=== PATIENT | male | born 1965 | race Caucasian/White ===

== ENCOUNTER 2017-03-02 16:45 | Inpatient (IN) | payer MEDICAID, OTHER ==
[~2017-03-02] VITALS: Ht 160 cm; Wt 65.0 kg
[2017-03-02] MEDS: SOD CHLORIDE 0.9% 1,000 ML IV SCH (00:50)
[2017-03-02 16:48] VITALS: Ht 160 cm; Wt 65.0 kg
[2017-03-02] MEDS ORDERED: morphine 4 MG/ML VIAL IV STA (17:36)
[2017-03-02] MEDS ORDERED: FAMOTIDINE 20 MG INJ IV STA (17:36)
[2017-03-02] MEDS ORDERED: SOD CHLORIDE 0.9% 1,000 ML IV STA (17:36)
[2017-03-02] MEDS ORDERED: ONDANSETRON 4 MG INJ IV STA (17:36)
[2017-03-02 17:59] LABS: ADD SCAN DIFF NO
[2017-03-02 18:02] LABS: BASOPHIL # 0.1 10^3/ul (0.0-0.1); BASOPHILS % 0.5 % (0.0-2.0); EOSINOPHILS # 0.2 10^3/ul (0.0-0.5); EOSINOPHILS % 2.2 % (0.0-7.0); HEMATOCRIT 37.1 % (42.0-52.0); HEMOGLOBIN 12.2 g/dl (14.0-18.0); LYMPHOCYTES % 20.7 % (15.0-51.0); MEAN CORPUSCULAR HEMOGLOBIN 29.8 pg (29.0-33.0); MEAN CORPUSCULAR HGB CONC 32.9 g/dl (32.0-37.0); MEAN CORPUSCULAR VOLUME 90.7 fl (82.0-101.0); MEAN PLATELET VOLUME 8.3 fl (7.4-10.4); MONOCYTE # 1.1 10^3/ul (0.3-0.9); MONOCYTES % 11.3 % (0.0-11.0); NEUTROPHIL # 6.2 10^3/ul (1.6-7.5); NEUTROPHILS % 64.5 % (39.0-77.0); PLATELET COUNT 253 10^3/UL (140-415); RED BLOOD COUNT 4.09 10^6/ul (4.70-6.10); RED CELL DISTRIBUTION WIDTH 15.9 % (11.5-14.5); WHITE BLOOD COUNT 9.7 10^3/ul (4.8-10.8)
[2017-03-02 18:06] LABS: ADD UMIC NO; UR ASCORBIC ACID NEGATIVE (NEGATIVE); UR BILIRUBIN (Dip) NEGATIVE (NEGATIVE); UR BLOOD (Dip) NEGATIVE (NEGATIVE); UR CLARITY CLEAR (CLEAR); UR COLOR YELLOW (YELLOW); UR GLUCOSE (Dip) NEGATIVE (NEGATIVE); UR KETONES (Dip) NEGATIVE (NEGATIVE); UR LEUKOCYTE ESTERASE (Dip) NEGATIVE Leu/ul (NEGATIVE); UR NITRITE (Dip) NEGATIVE (NEGATIVE); UR SPECIFIC GRAVITY (Dip) 1.008 (1.003-1.030); UR TOTAL PROTEIN (Dip) NEGATIVE (NEGATIVE); UR UROBILINOGEN (Dip) NEGATIVE (NEGATIVE)
[2017-03-02 18:19] LABS: ALBUMIN 4.2 g/dl (3.3-4.9); ALBUMIN/GLOBULIN RATIO 1.27; BILIRUBIN,INDIRECT 0.1 mg/dl (0-1.1); BILIRUBIN,TOTAL 0.1 mg/dl (0.2-1.3); CALCIUM 9.2 mg/dl (8.4-10.2); CREATININE 0.66 mg/dl (0.61-1.24); POTASSIUM 4.5 mmol/L (3.5-5.1); TOTAL PROTEIN 7.5 g/dl (6.1-8.1)
--- NOTE | 2017-03-02 19:06 | RADRPT ---
PROCEDURE: CT of the abdomen and pelvis without contrast CLINICAL INDICATION: Right lower quadrant pain. Right flank [place] drain within draining abscess . TECHNIQUE: Spiral CT images through the abdomen and pelvis without the use of contrast. The admin istered radiation dose is CTDI 7.37 and DLP 395.9. One or more of the following dose reduction tech niques were used: automated exposure control, adjustment of the mA and/or kV according to patient si ze, or use of iterative reconstruction technique. COMPARISON: None FINDINGS: Lack of oral and intravenous contrast somewhat limits evaluation. Slight dependent atelectasis of the lung bases is seen. No pleural effusion is seen. Slight aortic calcification. The liver, spleen, adrenals, kidneys, and pancreas are unremarkable in appearance. . There is a pe rcutaneous Cristiano drain in the right posterior flank which extends through the right paraspinal mus culature and into the right psoas muscle which appears enlarged. There is stranding about the right psoas muscle. There is a tubular structure extending superiorly from the posterior aspect of the c ecum which measures at least 1.1 cm in diameter. This may represent an inflamed appendix and inflam matory change surrounds the structure with slight stranding also seen in Morison's pouch. Mildly di lated pelvic small bowel loops. Enlarged prostate with slight calcification. Unremarkable urinary b ladder. Small fat-containing left inguinal hernia. There is no definite evidence for diverticuliti s. No adenopathy is seen. No focal drainable fluid collection. There is mild degenerative change of the spine. IMPRESSION: As drain which extends into the right psoas muscle. Stranding about the right psoas muscle with fat stranding also seen about what may represent an enlarged inflamed retrocecal appendix with strandin g extending into Morison's pouch. No definite undrained fluid collection. Study with oral contrast may be helpful to better define the bowel and appendix in particular. RPTAT: HLBE Physician Adrián Date Time Electronically viewed and signed by Stephany Marcial Physician on 03/02/2017 19:05 GUILLERMINA/
[2017-03-02] MEDS ORDERED: IOHEXOL 300MG/ML 150 ML BTL ONE (19:57)
[2017-03-02] MEDS ORDERED: SOD CHLORIDE 0.9% 100 ML ONE (19:57)
--- NOTE | 2017-03-02 20:55 | RADRPT ---
PROCEDURE: CT Abdomen and Pelvis with contrast. CLINICAL INDICATION: Rule out appendicitis TECHNIQUE: CT scan of the abdomen and pelvis with contrast was performed on a multi-detector high- resolution CT scanner. The patient was scanned following the intravenous administration of 90 cc of Omnipaque 300. Coronal and sagittal reformatted images were obtained from the axial source images. Images were reviewed on a high-resolution PACS workstation. The total exam CTDI equals 9.66 mGy and the total exam DLP equals 460.55 mGy-cm. One or more the following dose reduction techniques were utilized: Automated exposure control, adjus tment of the mA and / or kV according to patient's size, or use of iterative reconstruction techniqu e. COMPARISON: CT abdomen pelvis without contrast of 03/02/2017 FINDINGS: Slight dependent atelectasis of the lung bases is seen. No pleural effusion is seen. Calcification i n abdominal aorta and iliac arteries. No abdominal aortic aneurysm is seen. The liver, spleen, adren als, right kidney and pancreas are unremarkable in appearance. There is minimal left hydronephrosis and approximate 5 mm low density structure too small to characterize arising exophytically from the posterior mid left kidney. No imaging follow-up of this is recommended.. There is a percutaneous dr chandler catheter in the right posterior flank which extends through the right paraspinal musculature and into the right psoas muscle which appears enlarged. There is stranding about the right psoas mus dheeraj. There is a tubular structure extending superiorly from the posterior aspect of the cecum which measures at least 1.1 cm in diameter. This is suggestive of an acutely inflamed retrocecal appendix and inflammatory change surrounds the structure with slight stranding also seen in Morison's pouch. Minimally dilated small bowel loop again seen in the left pelvis. There is nonspecific. Enlarged pr ostate with slight calcification with impression on the bladder. Small fat-containing left inguinal hernia. Diverticula in sigmoid, descending colon. There is no definite evidence for acute divertic ulitis. Prominent less than 1 cm short axis lymph nodes in the mesentery in the right lower quadrant . There is mild degenerative change of the spine. There is very small umbilical hernia containing fa t only. Gallbladder is contracted which could be secondary to nonfasting state. No biliary dilatati on is seen. The stomach is not distended. IMPRESSION: Percutaneous drainage catheter which extends into the right psoas muscle. Stranding about the right psoas muscle. Findings suggestive of an acutely inflamed retrocecal appendix with considerable surr ounding inflammatory change and mild extension of inflammatory change and a small amount of fluid in the Morison's pouch region. Please see above. Discussed with Dr. Muhammad at 08:49 p.m. on 03/02/20 17. RPTAT: HJES .Wayne Benitez MD, MD Date Time Electronically viewed and signed by .Wayne Benitez MD, on 03/02/2017 20:55 .S/
--- NOTE | 2017-03-02 21:11 | ERA ---
ER Documentation Chief Complaint Date/Time DATE: 03/02/17 TIME: 21:08 Chief Complaint HPI This 51-year-old male presents to the emergency room for evaluation of abdominal pain that he localizes in the right lower quadrant for the past 2 weeks. The patient states that he was at [place] and had "a surgery with a tube placed in him". The patient does not know what surgery he had her . The patient came to the ER today for evaluation and localizes pain to the right lower quadrant with no radiation. He describes pain as an achy pain. The patient denies any fevers associated with this. ROS All systems reviewed and are negative except as per history of present illness. Medications Home Meds No Active Prescriptions or Reported Meds Allergies Allergies: Coded Allergies: No Known Allergy (Unverified , 03/02/17) PMhx/Soc Medical and Surgical Hx: pt denies Medical Hx, pt denies Surgical Hx Hx Alcohol Use: No Hx Substance Use: No Hx Tobacco Use: No Smoking Status: Never smoker Physical Exam Vitals Vital Signs Date Time Temp Pulse Resp B/P Pulse Ox O2 Delivery O2 Flow Rate FiO2 03/02/17 18:30 78 20 114/85 100 Room Air 03/02/17 16:48 99.2 97 20 118/77 97 Physical Exam INITIAL VITAL SIGNS: Reviewed by me GENERAL: The patient is well developed and appropriate for usual state of health in no apparent distress HEENT: Pupils equal, round, and reactive to light. EOMI. There is no scleral icterus. NECK: C-spine is soft and supple, there is no meningismus. There is no cervical lymphadenopathy. LUNGS: Clear to auscultation bilaterally. There are no rales, wheezes or rhonchi. HEART: Regular rate and rhythm, no murmurs, clicks, rubs or gallops. ABDOMEN: Positive McBurney point tenderness, bowel sounds 4, [place] drain from right flank EXTREMITIES: There is no peripheral cyanosis or edema. No focal swelling or erythema. NEUROLOGICAL: The patient moves all four extremities with 5/5 strength. Cranial nerves II - XII are intact. Normal gait. Alert and oriented SKIN: There is no apparent rash or petechiae. HEME/LYMPHATIC: There is no evidence of excessive bruising or lymphedema. PSYCHIATRIC: The patient does not appear anxious or depressed. Result Diagram: 03/02/17 1745 7/6/17 1745 Results 24 hrs Laboratory Tests Test 03/02/17 17:45 White Blood Count 9.710^3/ul Red Blood Count 4.0910^6/ul Hemoglobin 12.2g/dl Hematocrit 37.1% Mean Corpuscular Volume 90.7fl Mean Corpuscular Hemoglobin 29.8pg Mean Corpuscular Hemoglobin Concent 32.9g/dl Red Cell Distribution Width 15.9% Platelet Count 79418^3/UL Mean Platelet Volume 8.3fl Neutrophils % 64.5% Lymphocytes % 20.7% Monocytes % 11.3% Eosinophils % 2.2% Basophils % 0.5% Nucleated Red Blood Cells % 0.0/100WBC Neutrophils # 6.210^3/ul Lymphocytes # 2.010^3/ul Monocytes # 1.110^3/ul Eosinophils # 0.210^3/ul Basophils # 0.110^3/ul Nucleated Red Blood Cells # 0.010^3/ul Urine Color YELLOW Urine Clarity CLEAR Urine pH 5.0 Urine Specific [place] 1.008 Urine Ketones NEGATIVEmg/dL Urine Nitrite NEGATIVEmg/dL Urine Bilirubin NEGATIVEmg/dL Urine Urobilinogen NEGATIVEmg/dL Urine Leukocyte Esterase NEGATIVELeu/ul Urine Hemoglobin NEGATIVEmg/dL Urine Glucose NEGATIVEmg/dL Urine Total Protein NEGATIVEmg/dl Sodium Level 138mmol/L Potassium Level 4.5mmol/L Chloride Level 101mmol/L Carbon Dioxide Level 28mmol/L Anion Gap 14 Blood Urea Nitrogen 7mg/dl Creatinine 0.66mg/dl Glucose Level 100mg/dl Calcium Level 9.2mg/dl Total Bilirubin 0.1mg/dl Direct Bilirubin 0.00mg/dl Indirect Bilirubin 0.1mg/dl Aspartate Amino Transf (AST/SGOT) 21IU/L Alanine Aminotransferase (ALT/SGPT) 25IU/L Alkaline Phosphatase 98IU/L Total Protein 7.5g/dl Albumin 4.2g/dl Globulin 3.30g/dl Albumin/Globulin Ratio 1.27 Lipase 75U/L Current Medications Medications (Trade) Dose Ordered Sig/Juan Miguel Route PRN Reason Start Time Stop Time Status Last Admin Dose Admin Sodium Chloride (NS) 1,000 ml @ 1,000 mls/hr Q1H STAT IV 03/02/17 17:36 03/02/17 18:35 DC 03/02/17 19:08 Morphine Sulfate (morphine) 4 mg ONCE STAT IV 03/02/17 17:36 03/02/17 17:38 DC 03/02/17 17:55 Ondansetron HCl (Zofran Inj) 4 mg ONCE STAT IV 03/02/17 17:36 03/02/17 17:38 DC 03/02/17 17:55 Famotidine (Pepcid Iv) 20 mg ONCE STAT IV 03/02/17 17:36 03/02/17 17:38 DC 03/02/17 17:55 IV Flush 10 ml 10 ml STK-MED ONCE .ROUTE 03/02/17 19:57 03/02/17 19:58 DC Sodium Chloride (NS) 100 ml @ ud STK-MED ONCE .ROUTE 03/02/17 19:57 03/02/17 19:58 DC Iohexol (Omnipaque 300mg/ ml) 150 ml STK-MED ONCE .ROUTE 03/02/17 19:57 03/02/17 19:58 DC Procedures/MDM CT abdomen pelvis with IV contrast: Percutaneous drainage catheter which extends into the right psoas muscle. Stranding about the right psoas muscle. Findings suggestive of an acutely inflamed retrocecal appendix with considerable surrounding inflammatory change and mild extension of inflammatory change and a small amount of fluid in the Morison's pouch region. Please see above. This 51-year-old male presents to the ER for evaluation of abdominal pain. When I evaluated this patient the patient was complaining of right lower quadrant pain he did have significant tenderness on my examination. I did obtain a CT of the abdomen pelvis with IV contrast which shows an acutely inflamed retrocecal appendix with moderate inflammatory change. I have contacted Dr. Castro who is our on-call general surgeon. He states that he actually saw this patient at the other facility and states the patient had a complicated psoas abscess. I given this patient's pain he will be placed in for admission at this time. The patient was started on Flagyl. He will be admitted to the hospitalist Dr. Richard Departure Diagnosis: Primary Impression: Retrocecal appendicitis Additional Impressions: Abdominal pain Normocytic anemia Condition: Stable DARVINCHAITANYA NICERUDDY SCHILLING Mar 02, 2017 21:11
[2017-03-02 21:26] VITALS: TEMP 96.9
[2017-03-02] MEDS ORDERED: ACETAMINOPHEN 325 MG TAB PO PRN (21:30)
[2017-03-02] MEDS ORDERED: ONDANSETRON 4 MG INJ IV PRN (21:30)
[2017-03-02] MEDS ORDERED: metroNIDAZOLE 500 MG/NS (PMX) 100 ML IVPB ONE (21:30)
[2017-03-02 22:52] VITALS: BP 112/70; PULSE 81; RESP 18
--- NOTE | 2017-03-02 23:59 | HP ---
Date/Time of Note Date/Time of Note DATE: 03/02/17 TIME: 23:48 Assessment/Plan VTE Prophylaxis VTE Prophylaxis Intervention: SCD's Lines/Catheters IV Catheter Type (from Nrsg): Saline Lock Assessment/Plan Assessment/Plan 1. R psoas muscle abscess: s/p drain placement 2. Appendicitis ?acute versus non resolving PLAN: admit / empiric broadspectrum abx / await surgery review and recommendations / culture drainage PRN pain control/ antiemetics/ antipyretics/ supportive care HPI/ROS Admit Date/Time Admit Date/Time Mar 02, 2017 at 21:06 Hx of Present Illness This is a 51-year-old male who was recently managed at [facility] when he had presented with abdominal pain in the right lower quadrant. The patient had undergone a procedure and he had placed a drainage tube in him, it seems like he had a right psoas abscess. He was discharged but his pain recurred and has been slowly worsening over the last 2 weeks. He was brought to the emergency room where a CT scan does show the draining good position but now with a surrounding appendicitis. Dr. Mcdonald who was the original surgeon who saw him at [place] has accepted to follow him here as well and patient is being admitted for further workup and management. He has had some nausea but no vomiting, no fever. He has not had any blood in his stool, no hematemesis. No chest pain, no palpitations, no syncopal episode, no dizziness , no focal deficits. ROS 12 point review if systems was done and pertinent findings are as noted. PMH/Family/Social Past Medical History See HPI Past Surgical History See HPI Family History Significant Family History: no pertinent family hx Social History Alcohol Use: none Smoking Status: Never smoker Exam/Review of Systems Vital Signs Vitals VS - Last 72 Hours, by Label Date Time Temp Pulse Resp B/P Pulse Ox O2 Delivery O2 Flow Rate FiO2 03/02/17 22:52 98.2 81 18 112/70 99 Room Air 03/02/17 21:26 96.9 85 20 117/67 100 Room Air 03/02/17 18:30 78 20 114/85 100 Room Air 03/02/17 16:48 99.2 97 20 118/77 97 Vital Signs Date Time Temp Pulse Resp B/P Pulse Ox O2 Delivery O2 Flow Rate FiO2 03/02/17 22:52 98.2 81 18 112/70 99 Room Air Exam Exam GENERAL: Patient is alert, oriented x 3, in no apparent distress; does not appear acutely or chronically ill. Patient is able to sit up unassisted.Patient makes good eye contact, is conversant, interactive, coherent. Patient appears calm and comfortable and is able to follow commands. HEENT: Oropharynx is clear. There is no carotid bruit, no masses. Patient's pupils are equal, round and reactive to light bilaterally. Extraocular motions are intact. There is no scleral icterus. There is no facial asymmetry. NECK: Supple. LUNGS: Clear to auscultation bilaterally with good air entry. No Wheezes or crackles. HEART: S1, S2. No murmur, gallops or rubs. Regular rate and rhythm. ABDOMEN: Positive McBurney point tenderness, bowel sounds 4, Cristiano drain from right flank BACK: no costovertebral angle tenderness. GENITOURINARY: Deferred. EXTREMITIES: No edema. There is no cyanosis, clubbing. There are 2+ pulses bilaterally distally. NEUROLOGIC: The patient has no lateralizing signs. Cranial nerves II-XII are intact. SKIN: Otherwise, unremarkable. Labs Result Diagram: 03/02/17 1745 03/02/17 1745 Medications Medications Current Medications Sodium Chloride (NS) 1,000 ml @ 80 mls/hr [id number] IV ; Start 03/02/17 at 21:05; Stop 03/03/17 at 09:34 Procedures Procedures Laboratory Tests Test 03/02/17 17:45 White Blood Count 9.710^3/ul Red Blood Count 4.0910^6/ul Hemoglobin 12.2g/dl Hematocrit 37.1% Mean Corpuscular Volume 90.7fl Mean Corpuscular Hemoglobin 29.8pg Mean Corpuscular Hemoglobin Concent 32.9g/dl Red Cell Distribution Width 15.9% Platelet Count 07508^3/UL Mean Platelet Volume 8.3fl Neutrophils % 64.5% Lymphocytes % 20.7% Monocytes % 11.3% Eosinophils % 2.2% Basophils % 0.5% Nucleated Red Blood Cells % 0.0/100WBC Neutrophils # 6.210^3/ul Lymphocytes # 2.010^3/ul Monocytes # 1.110^3/ul Eosinophils # 0.210^3/ul Basophils # 0.110^3/ul Nucleated Red Blood Cells # 0.010^3/ul Urine Color YELLOW Urine Clarity CLEAR Urine pH 5.0 Urine Specific [place] 1.008 Urine Ketones NEGATIVEmg/dL Urine Nitrite NEGATIVEmg/dL Urine Bilirubin NEGATIVEmg/dL Urine Urobilinogen NEGATIVEmg/dL Urine Leukocyte Esterase NEGATIVELeu/ul Urine Hemoglobin NEGATIVEmg/dL Urine Glucose NEGATIVEmg/dL Urine Total Protein NEGATIVEmg/dl Sodium Level 138mmol/L Potassium Level 4.5mmol/L Chloride Level 101mmol/L Carbon Dioxide Level 28mmol/L Anion Gap 14 Blood Urea Nitrogen 7mg/dl Creatinine 0.66mg/dl Glucose Level 100mg/dl Calcium Level 9.2mg/dl Total Bilirubin 0.1mg/dl Direct Bilirubin 0.00mg/dl Indirect Bilirubin 0.1mg/dl Aspartate Amino Transf (AST/SGOT) 21IU/L Alanine Aminotransferase (ALT/SGPT) 25IU/L Alkaline Phosphatase 98IU/L Total Protein 7.5g/dl Albumin 4.2g/dl Globulin 3.30g/dl Albumin/Globulin Ratio 1.27 Lipase 75U/L Current Medications Medications (Trade) Dose Ordered Sig/Juan Miguel Route PRN Reason Start Time Stop Time Status Last Admin Dose Admin Sodium Chloride (NS) 1,000 ml @ 1,000 mls/hr Q1H STAT IV 03/02/17 17:36 03/02/17 18:35 DC 03/02/17 19:08 1,000 MLS/HR Morphine Sulfate (morphine) 4 mg ONCE STAT IV 03/02/17 17:36 03/02/17 17:38 DC 03/02/17 17:55 4 MG Ondansetron HCl (Zofran Inj) 4 mg ONCE STAT IV 03/02/17 17:36 03/02/17 17:38 DC 03/02/17 17:55 4 MG Famotidine (Pepcid Iv) 20 mg ONCE STAT IV 03/02/17 17:36 03/02/17 17:38 DC 03/02/17 17:55 20 MG IV Flush 10 ml 10 ml STK-MED ONCE .ROUTE 03/02/17 19:57 03/02/17 19:58 DC Sodium Chloride (NS) 100 ml @ ud STK-MED ONCE .ROUTE 03/02/17 19:57 03/02/17 19:58 DC Iohexol 150 ml 150 ml STK-MED ONCE .ROUTE 03/02/17 19:57 03/02/17 19:58 DC Sodium Chloride (NS) 1,000 ml @ 80 mls/hr [id number] IV 03/02/17 21:05 03/03/17 09:34 Ondansetron HCl (Zofran Inj) 4 mg BRIDGE ORDER PRN IV NAUSEA AND/OR VOMITING 03/02/17 21:30 03/03/17 21:29 Acetaminophen 650 mg 650 mg ER BRIDGE PRN PO MILD PAIN/FEVER 03/02/17 21:30 03/03/17 21:29 Metronidazole (Flagyl 500 Mg (Pmx)) 100 ml @ 100 mls/hr ONCE ONCE IVPB 03/02/17 21:30 03/02/17 22:29 DC 03/02/17 21:38 100 MLS/HR PROCEDURE: CT Abdomen and Pelvis with contrast. CLINICAL INDICATION: Rule out appendicitis TECHNIQUE: CT scan of the abdomen and pelvis with contrast was performed on a multi-detector high-resolution CT scanner. The patient was scanned following the intravenous administration of 90 cc of Omnipaque 300. Coronal and sagittal reformatted images were obtained from the axial source images. Images were reviewed on a high-resolution PACS workstation. The total exam CTDI equals 9.66 mGy and the total exam DLP equals 460.55 mGy-cm. One or more the following dose reduction techniques were utilized: Automated exposure control, adjustment of the mA and / or kV according to patient's size, or use of iterative reconstruction technique. COMPARISON: CT abdomen pelvis without contrast of 03/02/2017 FINDINGS: Slight dependent atelectasis of the lung bases is seen. No pleural effusion is seen. Calcification in abdominal aorta and iliac arteries. No abdominal aortic aneurysm is seen. The liver, spleen, adrenals, right kidney and pancreas are unremarkable in appearance. There is minimal left hydronephrosis and approximate 5 mm low density structure too small to characterize arising exophytically from the posterior mid left kidney. No imaging follow-up of this is recommended.. There is a percutaneous drainage catheter in the right posterior flank which extends through the right paraspinal musculature and into the right psoas muscle which appears enlarged. There is stranding about the right psoas muscle. There is a tubular structure extending superiorly from the posterior aspect of the cecum which measures at least 1.1 cm in diameter. This is suggestive of an acutely inflamed retrocecal appendix and inflammatory change surrounds the structure with slight stranding also seen in Morison's pouch. Minimally dilated small bowel loop again seen in the left pelvis. There is nonspecific. Enlarged prostate with slight calcification with impression on the bladder. Small fat-containing left inguinal hernia. Diverticula in sigmoid, descending colon. There is no definite evidence for acute diverticulitis. Prominent less than 1 cm short axis lymph nodes in the mesentery in the right lower quadrant. There is mild degenerative change of the spine. There is very small umbilical hernia containing fat only. Gallbladder is contracted which could be secondary to nonfasting state. No biliary dilatation is seen. The stomach is not distended. IMPRESSION: Percutaneous drainage catheter which extends into the right psoas muscle. Stranding about the right psoas muscle. Findings suggestive of an acutely inflamed retrocecal appendix with considerable surrounding inflammatory change and mild extension of inflammatory change and a small amount of fluid in the Morison's pouch region. Please see above. Discussed with Dr. Muhammad at 08:49 p.m. on 03/02/2017. RPTAT: HJES .Wayne Benitez MD, MD Date Time Electronically viewed and signed by .Wayne Benitez MD, on 03/02/2017 20:55 TESS ALLRED Mar 02, 2017 23:59
[2017-03-03] MEDS ORDERED: morphine 2 MG INJ IV PRN
[2017-03-03] MEDS: DEXTROSE 5%-0.45% NACL 1,000 ML IV SCH ×2 (01:31→08:00)
[2017-03-03] MEDS: PIPER-TAZO 3.375 GM IV (PMX) 100 ML IVPB SCH ×3 (01:31→13:55)
[2017-03-03 02:00] VITALS: BP 99/60; RESP 19
[2017-03-03] MEDS: SOD CHLORIDE 0.9% 1,000 ML IV SCH (02:18)
[2017-03-03 07:45] VITALS: BP 106/62; RESP 16
[2017-03-03] MEDS ORDERED: FAMOTIDINE 20 MG INJ IV SCH (09:00)
[2017-03-03 14:35] VITALS: BP 107/68; RESP 16
[2017-03-03] MEDS ORDERED: IBUPROFEN 800 MG TAB PO PRN (17:00)
[2017-03-03] MEDS ORDERED: metroNIDAZOLE 500 MG TAB PO SCH (17:00)
--- NOTE | 2017-03-03 17:00 | DS ---
Date/Time of Note Date/Time of Note DATE: 03/03/17 TIME: 16:56 Discharge Summary Admission/Discharge Info Admit Date/Time Mar 02, 2017 at 21:06 Discharge Date/Time 03/03/17 Discharge Diagnosis Ac Appy Consults Dr Castro Procedures Ct Hx of Present Illness This is a 51-year-old male who was recently managed at [facility] when he had presented with abdominal pain in the right lower quadrant. The patient had undergone a procedure and he had placed a drainage tube in him, it seems like he had a right psoas abscess. He was discharged but his pain recurred and has been slowly worsening over the last 2 weeks. He was brought to the emergency room where a CT scan does show the draining good position but now with a surrounding appendicitis. Dr. Castro who was the original surgeon who saw him at [place] has accepted to follow him here as well and patient is being admitted for further workup and management. He has had some nausea but no vomiting, no fever. He has not had any blood in his stool, no hematemesis. No chest pain, no palpitations, no syncopal episode, no dizziness , no focal deficits. Hospital Course 51-year-old male who was recently managed at [facility] w drainage tube placement for right psoas abscess. He was discharged but pain recurred, worsening over [address] here showed drain in good position but now surrounding appendicitis. Dr. Castro who was the original surgeon noted that he is stable and fit for discharge. Will arrange outpatient Appy. Drain has been removed. Weight loss- improved post Abscess therapy. Appt Dr Castro 1wk PCP 1wk Home Meds No Active Prescriptions or Reported Meds Follow-up Plan Dr Castro 1wk Primary Care Provider Care Physician No Primary Pending Labs Laboratory Tests Test 03/02/17 17:45 White Blood Count 9.710^3/ul (4.8-10.8) Red Blood Count 4.0910^6/ul (4.70-6.10) Hemoglobin 12.2g/dl (14.0-18.0) Hematocrit 37.1% (42.0-52.0) Mean Corpuscular Volume 90.7fl (82.0-101.0) Mean Corpuscular Hemoglobin 29.8pg (29.0-33.0) Mean Corpuscular Hemoglobin Concent 32.9g/dl (32.0-37.0) Red Cell Distribution Width 15.9% (11.5-14.5) Platelet Count 43011^3/UL (140-415) Mean Platelet Volume 8.3fl (7.4-10.4) Neutrophils % 64.5% (39.0-77.0) Lymphocytes % 20.7% (15.0-51.0) Monocytes % 11.3% (0.0-11.0) Eosinophils % 2.2% (0.0-7.0) Basophils % 0.5% (0.0-2.0) Nucleated Red Blood Cells % 0.0/100WBC (0.0-0.0) Neutrophils # 6.210^3/ul (1.6-7.5) Lymphocytes # 2.010^3/ul (0.8-2.9) Monocytes # 1.110^3/ul (0.3-0.9) Eosinophils # 0.210^3/ul (0.0-0.5) Basophils # 0.110^3/ul (0.0-0.1) Nucleated Red Blood Cells # 0.010^3/ul (0.0-0.0) Urine Color YELLOW (YELLOW) Urine Clarity CLEAR (CLEAR) Urine pH 5.0 (5.0-9.0) Urine Specific [place] 1.008 (1.003-1.030) Urine Ketones NEGATIVEmg/dL (NEGATIVE) Urine Nitrite NEGATIVEmg/dL (NEGATIVE) Urine Bilirubin NEGATIVEmg/dL (NEGATIVE) Urine Urobilinogen NEGATIVEmg/dL (NEGATIVE) Urine Leukocyte Esterase NEGATIVELeu/ul (NEGATIVE) Urine Hemoglobin NEGATIVEmg/dL (NEGATIVE) Urine Glucose NEGATIVEmg/dL (NEGATIVE) Urine Total Protein NEGATIVEmg/dl (NEGATIVE) Sodium Level 138mmol/L (135-144) Potassium Level 4.5mmol/L (3.5-5.1) Chloride Level 101mmol/L (97-110) Carbon Dioxide Level 28mmol/L (21-31) Anion Gap 14 (8-16) Blood Urea Nitrogen 7mg/dl (7-20) Creatinine 0.66mg/dl (0.61-1.24) Glucose Level 100mg/dl (70-220) Calcium Level 9.2mg/dl (8.4-10.2) Total Bilirubin 0.1mg/dl (0.2-1.3) Direct Bilirubin 0.00mg/dl (0.00-0.20) Indirect Bilirubin 0.1mg/dl (0-1.1) Aspartate Amino Transf (AST/SGOT) 21IU/L (15-46) Alanine Aminotransferase (ALT/SGPT) 25IU/L (13-69) Alkaline Phosphatase 98IU/L (42-121) Total Protein 7.5g/dl (6.1-8.1) Albumin 4.2g/dl (3.3-4.9) Globulin 3.30g/dl (1.3-3.2) Albumin/Globulin Ratio 1.27 Lipase 75U/L (23-300) JIA TALBOT MD Mar 03, 2017 17:00
--- NOTE | 2017-03-03 17:01 | PDOCDIS ---
Discharge Instructions DIAGNOSIS Discharge Diagnosis Ac Appy CONDITION Patient Condition: Good HOME CARE INSTRUCTIONS: Diet Instructions: Regular ACTIVITY: Activity Restrictions: Slowly Increase Activity FOLLOW UP/APPOINTMENTS Follow-up Plan Dr Castro 1wk JIA TALBOT MD Mar 03, 2017 17:01
[2017-03-03] MEDS ORDERED: METR500T PO (17:02)
[2017-03-03] MEDS ORDERED: LACT1CAP57 PO (17:02)
[2017-03-03] MEDS ORDERED: IBUP800T25 PO (17:02)
[2017-03-03] MEDS ORDERED: CIPR500T4 PO (17:02)
[2017-03-03] MEDS ORDERED: CIPROFLOXACIN 500 MG TAB PO SCH (18:00)
--- NOTE | 2017-03-08 09:32 | CONS ---
DATE OF ADMISSION: 03/02/2017 DATE OF CONSULTATION: 03/03/2017 REASON FOR CONSULTATION: Acute appendicitis. The patient is a 51-year-old male who two weeks ago was admitted to [facility] with large phlegmon versus neoplasm occupying the entire right lower quadrant of the abdomen. He was treated with IV antibiotics and CT drainage. The cytology and the fluid from the CT drainage was negative for malignancy and progressively the inflammatory process and phlegmon partially abscessed and was able to be successfully drained with his pigtail catheter. He was discharged home with antibiotics with the notion of repeating the CT scan in 2 weeks with a plan for interval appendectomy approximately 4 weeks from now. He came into the emergency room yesterday because he was bloated and had some right lower quadrant abdominal pain. In the emergency room a CT scan was performed and showed a retrocecal appendicitis with a pigtail catheter and no drainable fluid collection and some stranding in the right psoas area. This represented a marked improvement from the previous CT. His pigtail catheter has essentially been draining nothing for the last several days. He has had no fevers, chills or change in bowel or bladder habits. PAST MEDICAL HISTORY: As noted above. REVIEW OF SYSTEMS: HEAD, EARS, EYES, NOSE AND THROAT: Unremarkable. PULMONARY: No history of shortness of breath, asthma or pneumonia. CARDIAC: No history of chest pain, WI or arrhythmia. ABDOMEN: As in the HPI. EXTREMITIES: Unremarkable. MEDICATION: Outlined in the chart. ALLERGIES: NONE. PHYSICAL EXAMINATION: GENERAL: The patient is an alert and oriented 51-year-old male in no acute distress. HEENT: Within normal limits. LUNGS: Clear. HEART: Regular rhythm. ABDOMEN: Soft, flat and nontender. There is a pigtail catheter entering the right flank. The bulb has 0 drainage. EXTREMITIES: Unremarkable. LABORATORY: The patient's hematocrit is 37.1 with a white count of 9,[address] findings as noted above. IMPRESSION: The patient has had an excellent response to CT drainage. PLAN: I have removed the pigtail catheter at the bedside. The patient can be discharged home with p.o. antibiotics and followup with his primary care physician. He will need referral to General Surgery for interval laparoscopic appendectomy in approximately 1 months' time from now. Dictated By: Marko Castro MD /mario/ /Document#: [id number]
== END 2017-03-03 18:08 | disposition home or self-care (01) | DRG 395 ==
LOC: E/R 16:45 → PP2 21:06
PROVIDERS: ADMIT Family Medicine; ATTEND Family Medicine
DX: K35.80 Unspecified acute appendicitis (principal); D64.9 Anemia, unspecified
CPT/HCPCS: 36415; 74176; 74177; 80053; 81003; 83690; 85025; 87081; 96374; 96375; J2270; J2405; J2543; J7030; J7042; Q9967

== ENCOUNTER 2017-05-29 10:00 | Inpatient (IN) | payer BC, MEDICAID ==
[~2017-05-29] VITALS: Ht 160 cm; Wt 78.0 kg
[2017-05-29] VITALS (24 sets, daily range): BP systolic 115–152; BP diastolic 57–90; PULSE 75–98; RESP 16–20; Ht 160 cm; Wt 78.0 kg
[~2017-05-29 10:00] MED LIST: CIPR500T4 PO; IBUP800T25 PO; LACT1CAP57 PO; METR500T PO
[2017-05-29 12:58] LABS: BASOPHILS % 0.5 % (0.0-2.0); EOSINOPHILS # 0.1 10^3/ul (0.0-0.5); EOSINOPHILS % 1.9 % (0.0-7.0); HEMATOCRIT 42.3 % (42.0-52.0); HEMOGLOBIN 14.6 g/dl (14.0-18.0); LYMPHOCYTES % 26.2 % (15.0-51.0); MEAN CORPUSCULAR HEMOGLOBIN 30.4 pg (29.0-33.0); MEAN CORPUSCULAR HGB CONC 34.5 g/dl (32.0-37.0); MEAN CORPUSCULAR VOLUME 87.9 fl (82.0-101.0); MEAN PLATELET VOLUME 9.5 fl (7.4-10.4); MONOCYTE # 0.6 10^3/ul (0.3-0.9); MONOCYTES % 8.2 % (0.0-11.0); NEUTROPHIL # 4.7 10^3/ul (1.6-7.5); NEUTROPHILS % 62.8 % (39.0-77.0); PLATELET COUNT 194 10^3/UL (140-415); RED BLOOD COUNT 4.81 10^6/ul (4.70-6.10); RED CELL DISTRIBUTION WIDTH 13.3 % (11.5-14.5); WHITE BLOOD COUNT 7.5 10^3/ul (4.8-10.8)
[2017-05-29 13:17] LABS: ALBUMIN 3.9 g/dl (3.3-4.9); ALBUMIN/GLOBULIN RATIO 1.11; BILIRUBIN,INDIRECT 0.4 mg/dl (0-1.1); BILIRUBIN,TOTAL 0.4 mg/dl (0.2-1.3); CALCIUM 9.3 mg/dl (8.4-10.2); CREATININE 0.71 mg/dl (0.61-1.24); TOTAL PROTEIN 7.4 g/dl (6.1-8.1)
[2017-05-29 13:18] LABS: POTASSIUM 4.7 mmol/L (3.5-5.1)
[2017-05-29 13:26] LABS: INR 1.02; PARTIAL THROMBOPLASTIN TIME 27.4 Sec (25.0-35.0); PROTIME 13.4 Sec (12.2-14.2)
[2017-05-29] MEDS ORDERED: SOD CHLORIDE 0.9% 1,000 ML IV SCH (13:30)
[2017-05-29] MEDS ORDERED: CEFAZOLIN 1 GM/NS 50 ML X 1 IVPB ONE (13:30)
[2017-05-29] MEDS ORDERED: ROCURONIUM 50 MG INJ ONE (14:30)
[2017-05-29] MEDS ORDERED: FENTAnyl 50 MCG/ML VIAL ONE (14:30)
[2017-05-29] MEDS ORDERED: LIDOCAINE 2% (SDV) 5 ML INJ ONE (14:30)
[2017-05-29] MEDS ORDERED: PROPOFOL 20 ML ONE (14:30)
[2017-05-29] MEDS ORDERED: morphine 10 MG INJ ONE (14:45)
[2017-05-29] MEDS ORDERED: AMPICILLIN/SULB 3 GM/NS (PMX) 100 ML IVPB ONE (15:20)
[2017-05-29] MEDS ORDERED: DEXAMETHASONE 4 MG/ML 1 ML INJ ONE (15:37)
[2017-05-29] MEDS ORDERED: SUGAMMADEX SODIUM 200 MG/2 ML VIAL IV ONE (15:38)
[2017-05-29] MEDS ORDERED: FENTAnyl 50 MCG/ML VIAL IV PRN ×3 (16:00)
[2017-05-29] MEDS ORDERED: OXYCODONE/ACETAMINOPHEN (5/325) TAB PO PRN ×2 (16:00)
[2017-05-29] MEDS ORDERED: KETOROLAC 30 MG INJ IV PRN (16:00)
[2017-05-29] MEDS ORDERED: MEPERIDINE 25 MG INJ IV PRN (16:00)
[2017-05-29] MEDS ORDERED: HYDROmorphONE (0.2 MG/ML) 10ML SYG IV PRN ×2 (16:00)
[2017-05-29] MEDS ORDERED: LABETALOL HCL 20MG INJ IV PRN (16:00)
[2017-05-29] MEDS ORDERED: hydrALAzine 20 MG INJ IV PRN (16:00)
[2017-05-29] MEDS ORDERED: EPHEDrine SULFATE 50 MG/5 ML SYG IV PRN (16:00)
[2017-05-29] MEDS ORDERED: METOCLOPRAMIDE 10 MG INJ IV PRN (16:00)
[2017-05-29] MEDS ORDERED: DIPHENHYDRAMINE 50 MG INJ IV PRN (16:00)
[2017-05-29] MEDS ORDERED: ONDANSETRON 4 MG INJ IV PRN ×2 (16:00→16:30)
[2017-05-29] MEDS: HYDROmorphONE (0.2 MG/ML) 10ML SYG IV PRN ×3 (16:05→16:32)
[2017-05-29] MEDS ORDERED: ACETAMINOPHEN 1000MG/100ML IV 100 ML IVPB PRN (16:30)
[2017-05-29] MEDS ORDERED: HYDROmorphONE 1 MG/ML SYG IV PRN (16:30)
[2017-05-29] MEDS: D5W-0.45 NACL + KCL 20 MEQ 1,000 ML IV SCH (18:15)
[2017-05-29] MEDS: KETOROLAC 30 MG INJ IV SCH (18:19)
--- NOTE | 2017-05-29 18:34 | OPR ---
DATE OF OPERATION: 05/29/2017 PREOPERATIVE DIAGNOSES: 1. History of acute appendicitis. 2. Need for interval appendectomy. POSTOPERATIVE DIAGNOSES: 1. History of acute appendicitis. 2. Need for interval appendectomy. OPERATION PERFORMED: Interval appendectomy. ANESTHESIA: General. ANESTHESIOLOGIST: Mao Lucero MD SURGEON: Jermain Trujillo MD MEDICAL CLAIMS PROCESSOR: None. INDICATIONS FOR PROCEDURE: Patient is a 52-year-old male, who approximately 2-3 months ago was seen at a local hospital for acute appendicitis. For reasons that are not clear, patient did not go undergo operative appendectomy, but was treated with antibiotics. He was then discharged from the hospital. Since that time, he has had significant and persistent right lower quadrant pain. It should also be noted that when he was treated in the hospital with antibiotics, a percutaneous drain was also placed. I had a lengthy discussion with the patient in my office as to the need for appendectomy. He consented and was scheduled for surgery. OPERATIVE PROCEDURE: Patient was brought to the operating theater, placed under general endotracheal tube anesthesia. The right lower quadrant was shaved, prepped and draped in the usual sterile fashion. Approximately 4-5 cm incision was made at McBurney's point in the standard fashion. Subcutaneous tissue was dissected with cautery down to the aponeurosis of the external oblique. The aponeurosis of the external oblique was incised in the direction of the fibers to allow visualization of the underlying fusion line of the internal oblique and rectus sheath. Fusion line was incised vertically, as was the underlying transversus abdominis muscle and peritoneum. Upon entering the abdomen, a gloved finger was used to identify the cecum. It was elevated into the wound. The appendix was found to be in a retrocecal position. There was still evidence of inflammation, but no active pus. It was meticulously mobilized and brought into the wound. The mesoappendix was sequentially transected with the LigaSure device. With the base of the appendix fully exposed, it was ligated first with 3-0 Vicryl suture, and then a 2nd ligation took place with 0 Prolene suture. The appendix was transected and sent for permanent pathologic analysis. The base of the appendix was ablated with cautery to prevent future mucocele formation. The right lower quadrant was then irrigated, and the abdomen was then closed in layered fashion with 2-0 Prolene sutures. Final closure of the aponeurosis of the external oblique took place with a running 3-0 Vicryl suture. The wound was then irrigated with Betadine, and skin was reapproximated with skin sharmin. The patient tolerated procedure well. The estimated blood loss was 20 mL. There were no complications, and the patient was transported in stable condition to the recovery room. Dictated By: Jermain Trujillo MD /mario/tayo /Document#: [id number]
[2017-05-29] MEDS: PIPER-TAZO 3.375 GM IV (PMX) 100 ML IVPB SCH (19:00)
--- NOTE | 2017-05-29 21:40 | HP ---
DATE OF ADMISSION: 05/29/2017 CHIEF COMPLAINT/HISTORY OF PRESENT ILLNESS: The patient is a 52- year-old gentleman who initially back in February presented at [facility] with right lower quadrant pain. CT revealed probable perforated appendicitis; however, he was never treated surgically. He was given antibiotic and then discharged. Subsequently, he continued to experience symptoms and eventually presented to [facility] and was treated with antibiotics. Patient was seen by Dr. Castro at that time, and recommended medical treatment and outpatient appendectomy. Patient was subsequently referred to Dr. Trujillo and brought into the hospital today for interval open appendectomy. Patient does have postoperative pain. Denies any nausea, vomiting. Denies any chest pain. No reported fever or chills. No reported focal weakness. No reported vomiting. No reported dysuria or hematuria. No reported headache, dizziness, syncope. No history of cough, shortness of breath. Rest of review of systems unremarkable. PAST MEDICAL HISTORY: As stated above. PAST SURGICAL HISTORY: As stated above. FAMILY HISTORY: Noncontributory. SOCIAL HISTORY: No smoking. No alcohol. PHYSICAL EXAMINATION: GENERAL: Patient conscious, awake, alert. VITAL SIGNS: Temperature 98.3, pulse 92, respirations 18, blood pressure 152/83, O2 sat 94 percent on room air. HEENT: Conjunctivae is normal. Oropharynx clear. NECK: Supple. No mass. No thyromegaly. CHEST: Fairly clear. CARDIAC: Normal. No murmur. ABDOMEN: Patient is status post appendectomy. EXTREMITIES: No leg edema. Pedal pulses palpable. NEUROLOGIC: Patient is awake, alert, with no gross focal deficit. RECTAL: Was deferred due to patient's postoperative state. LABORATORY: Done this morning: WBC 7.5, hemoglobin 14.6, platelets 194. Sodium 139, potassium 4.7, BUN 12, creatinine 0.7, glucose 83. Liver enzymes normal. IMPRESSION: History of perforated appendicitis, with abscess, status post catheter drainage, status post interval open appendectomy. PLAN: Patient was admitted on medical floor and will be started on IV Zosyn, IV fluid. Patient will be kept n.p.o. and will be given IV Dilaudid for pain control. Further recommendations depending on patient's clinical course. We will use SCDs for DVT prophylaxis. Dictated By: Harish Mackey MD /mario/tayo /Document#: [id number]
[2017-05-30] MEDS: KETOROLAC 30 MG INJ IV SCH ×4 (00:06→17:24)
[2017-05-30 02:00] VITALS: BP 112/68; RESP 19
[2017-05-30] MEDS: PIPER-TAZO 3.375 GM IV (PMX) 100 ML IVPB SCH ×3 (02:37→17:35)
[2017-05-30] MEDS: D5W-0.45 NACL + KCL 20 MEQ 1,000 ML IV SCH ×4 (03:20→23:49)
[2017-05-30 07:38] VITALS: BP 112/67; RESP 18
[2017-05-30 14:43] VITALS: BP 106/66; RESP 18
--- NOTE | 2017-05-30 15:35 | PN ---
Date/Time of Note Date/Time of Note DATE: 05/30/17 TIME: 15:31 Assessment/Plan VTE Prophylaxis VTE Prophylaxis Intervention: SCD's Lines/Catheters IV C[facility]ter Type (from [facility]): Peripheral IV Urinary Cath still in place: No Assessment/Plan Assessment/Plan 48-year-old male with: 1. Previous appendicitis, status post appendectomy, POD#[address] Trujillo Patient passing gas, follow-up from surgery pending hopefully can be started on clear liquids. On IV antibiotics Further disposition per general surgery. Prophylaxis: SCDs for DVT prophylaxis, Protonix for GI prophylaxis Disposition: Per General surgery Subjective 24 Hr Interval Summary Free Text/Dictation Patient doing fairly well, still n.p.o., awaiting surgical follow-up Postoperative day #1 status post open appendectomy and patient has been ambulating and passing gas. Exam/Review of Systems Vital Signs Vitals Vital Signs Date Time Temp Pulse Resp B/P Pulse Ox O2 Delivery O2 Flow Rate FiO2 05/30/17 14:43 98.0 93 18 106/66 98 05/29/17 22:00 Room Air 05/29/17 21:00 2.0 Intake and Output 05/29/17 05/29/17 05/30/17 15:00 23:00 07:00 Intake Total 900 ml 100 ml 1575 ml Output Total 20 ml 600 ml Balance 880 ml 100 ml 975 ml Exam Constitutional: alert, oriented, well developed Respiratory: clear to auscultation, normal air movement Cardiovascular: nl pulses, regular rate and rhythm Gastrointestinal: soft, tender (Right lower quadrant, dressing in place.) Musculoskeletal: nl extremities to inspection, nl gait and stance Extremities: normal pulses Neurological: SCHOOL GUARD II-XII intact, nl mental status, nl speech, nl strength Results Result Diagram: 05/29/17 1230 05/29/17 1230 Medications Medications Current Medications Potassium Chloride/Dextrose/ Sod Cl 1,000 ml @ 125 mls/hr Q8H IV Last administered on 05/30/17 03:20; Admin Dose 125 MLS/HR; Start 05/29/17 at 15:49 Piperacillin Sod/ Tazobactam Sod 100 ml @ 25 mls/hr TID@02,10,18 IVPB Last administered on 05/30/17 09:42; Admin Dose 25 MLS/HR; Start 05/29/17 at 18:00; Stop 05/31/17 at 17:59 Acetaminophen (Ofirmev 1000mg/ 100ml Iv) 100 ml @ 400 mls/hr Q6H PRN IVPB PAIN LEVEL 1-3,fever; Start 05/29/17 at 16:30 Hydromorphone HCl (Dilaudid) 1 mg Q4H PRN IV PAIN; Start 05/29/17 at 16:30 Ketorolac Tromethamine (Toradol) 30 mg Q6H IV Last administered on 05/30/17t 09 :40; Admin Dose 30 MG; Start 05/29/17 at 16:30; Stop 05/30/17 at 18:00 Ondansetron HCl (Zofran Inj) 4 mg Q4H PRN IV NAUSEA AND/OR VOMITING; Start 05/29/17 at 16:30 Pantoprazole (Protonix Iv) 40 mg DAILY@06 IV ; Start 05/31/17 at 06:00 Procedures Procedures DATE OF OPERATION: 05/29/2017 PREOPERATIVE DIAGNOSES: 1. History of acute appendicitis. 2. Need for interval appendectomy. POSTOPERATIVE DIAGNOSES: 1. History of acute appendicitis. 2. Need for interval appendectomy. OPERATION PERFORMED: Interval appendectomy. ANESTHESIA: General. ANESTHESIOLOGIST: Mao Lucero MD SURGEON: Jermain Trujillo MD SECURITIES SUPERVISOR: None. INDICATIONS FOR PROCEDURE: Patient is a 52-year-old male, who approximately 2-3 months ago was seen at a local hospital for acute appendicitis. For reasons that are not clear, patient did not go undergo operative appendectomy, but was treated with antibiotics. He was then discharged from the hospital. Since that time, he has had significant and persistent right lower quadrant pain. It should also be noted that when he was treated in the hospital with antibiotics, a percutaneous drain was also placed. I had a lengthy discussion with the patient in my office as to the need for appendectomy. He consented and was scheduled for surgery. OPERATIVE PROCEDURE: Patient was brought to the operating theater, placed under general endotracheal tube anesthesia. The right lower quadrant was shaved, prepped and draped in the usual sterile fashion. Approximately 4-5 cm incision was made at McBurney's point in the standard fashion. Subcutaneous tissue was dissected with cautery down to the aponeurosis of the external oblique. The aponeurosis of the external oblique was incised in the direction of the fibers to allow visualization of the underlying fusion line of the internal oblique and rectus sheath. Fusion line was incised vertically, as was the underlying transversus abdominis muscle and peritoneum. Upon entering the abdomen, a gloved finger was used to identify the cecum. It was elevated into the wound. The appendix was found to be in a retrocecal position. There was still evidence of inflammation, but no active pus. It was meticulously mobilized and brought into the wound. The mesoappendix was sequentially transected with the LigaSure device. With the base of the appendix fully exposed, it was ligated first with 3-0 Vicryl suture, and then a 2nd ligation took place with 0 Prolene suture. The appendix was transected and sent for permanent pathologic analysis. The base of the appendix was ablated with cautery to prevent future mucocele formation. The right lower quadrant was then irrigated, and the abdomen was then closed in layered fashion with 2-0 Prolene sutures. Final closure of the aponeurosis of the external oblique took place with a running 3-0 Vicryl suture. The wound was then irrigated with Betadine, and skin was reapproximated with skin sharmin. The patient tolerated procedure well. The estimated blood loss was 20 mL. There were no complications, and the patient was transported in stable condition to the recovery room. Dictated By: MD MICHAELLE Guerrero N'DEYE F May 30, 2017 15:35
--- NOTE | 2017-05-30 17:22 | PN ---
DATE: 05/30/2017 Postop day number 1, status post open elective appendectomy. SUBJECTIVE: Feels okay. No nausea. No vomiting. Has passed a little bit of gas. No bowel movement. OBJECTIVE: VITAL SIGNS: Stable. No fever. Heart rate 93, respiration 18, blood pressure 106/66, and saturation 98 percent on room air. HEART: Regular. LUNGS: Clear. Decreased breathing sound on the right base. ABDOMEN: To me appears very distended, is tympanic, bowel sounds hypoactive. ASSESSMENT AND PLAN: This is a 52-year-old who is status post appendectomy. So far is stable, but there is tympanic abdomen. Bowel sounds are hypoactive. The patient insists to have food. So, we are going to give him clear liquids and observe him at least until tomorrow. We will see what happens. Dictated By: Thanh Griffin MD /mario/frida /Document#: [id number]
[2017-05-30 19:57] VITALS: BP 110/69; RESP 20
[2017-05-31] MEDS: PIPER-TAZO 3.375 GM IV (PMX) 100 ML IVPB SCH ×2 (01:38→10:10)
[2017-05-31 02:20] VITALS: BP 138/78; RESP 20
[2017-05-31 05:22] LABS: BASOPHILS % 0.2 % (0.0-2.0); HEMATOCRIT 38.5 % (42.0-52.0); HEMOGLOBIN 13.3 g/dl (14.0-18.0); LYMPHOCYTES # 1.8 10^3/ul (0.8-2.9); LYMPHOCYTES % 14.8 % (15.0-51.0); MEAN CORPUSCULAR HEMOGLOBIN 31.1 pg (29.0-33.0); MEAN CORPUSCULAR HGB CONC 34.5 g/dl (32.0-37.0); MEAN CORPUSCULAR VOLUME 90.2 fl (82.0-101.0); MEAN PLATELET VOLUME 9.3 fl (7.4-10.4); MONOCYTE # 0.7 10^3/ul (0.3-0.9); MONOCYTES % 6.1 % (0.0-11.0); NEUTROPHIL # 9.4 10^3/ul (1.6-7.5); NEUTROPHILS % 78.4 % (39.0-77.0); PLATELET COUNT 195 10^3/UL (140-415); RED BLOOD COUNT 4.27 10^6/ul (4.70-6.10); RED CELL DISTRIBUTION WIDTH 13.1 % (11.5-14.5)
[2017-05-31 05:37] LABS: CALCIUM 8.8 mg/dl (8.4-10.2); CREATININE 0.83 mg/dl (0.61-1.24)
[2017-05-31] MEDS ORDERED: PANTOPRAZOLE 40 MG INJ IV SCH (06:00)
[2017-05-31 08:00] VITALS: BP 119/66; RESP 18
[2017-05-31] MEDS: D5W-0.45 NACL + KCL 20 MEQ 1,000 ML IV SCH ×3 (10:08→22:35)
--- NOTE | 2017-05-31 12:40 | PN ---
Date/Time of Note Date/Time of Note DATE: 05/31/17 TIME: 12:36 Assessment/Plan VTE Prophylaxis VTE Prophylaxis Intervention: ambulation, SCD's Lines/Catheters IV Catheter Type (from Nrs): Peripheral IV Urinary Cath still in place: No Assessment/Plan Assessment/Plan 48-year-old male with: 1. Previous appendicitis, status post appendectomy, POD#[address] Trujillo Patient passing gas, on clears for now per Dr Griffin Follow-up with general surgery today re diet ad d/c plan. Slight bump of WBC but patient feels better clinically, continue current antibiotics Further disposition per general surgery. Prophylaxis: SCDs for DVT prophylaxis, Protonix for GI prophylaxis Disposition: Per General surgery Subjective 24 Hr Interval Summary Free Text/Dictation Patient ambulatory and passing Gas Tolerating clears Follow up Gen Surg recs today re d/c plans Exam/Review of Systems Vital Signs Vitals Vital Signs Date Time Temp Pulse Resp B/P Pulse Ox O2 Delivery O2 Flow Rate FiO2 05/31/17 08:00 98.0 73 18 119/66 96 05/29/17 22:00 Room Air 05/29/17 21:00 2.0 Intake and Output 05/30/17 05/30/17 05/31/17 15:00 23:00 07:00 Intake Total 100 ml 1205 ml 320 ml Output Total 800 ml Balance 100 ml 405 ml 320 ml Exam Constitutional: alert, oriented, well developed Respiratory: clear to auscultation, normal air movement Cardiovascular: nl pulses, regular rate and rhythm Gastrointestinal: non-tender, other (RLQ dressing in place, less TTP ), soft Musculoskeletal: nl extremities to inspection, nl gait and stance Extremities: normal pulses Neurological: QC ANALYST II-XII intact, nl mental status, nl speech, nl strength Results Result Diagram: 05/31/17 0456 05/31/17 0456 Results 24 hrs Laboratory Tests Test 05/31/17 04:56 White Blood Count 12.0 #H Red Blood Count 4.27 L Hemoglobin 13.3 L Hematocrit 38.5 L Mean Corpuscular Volume 90.2 Mean Corpuscular Hemoglobin 31.1 Mean Corpuscular Hemoglobin Concent 34.5 Red Cell Distribution Width 13.1 Platelet Count 195 Mean Platelet Volume 9.3 Neutrophils % 78.4 H Lymphocytes % 14.8 L Monocytes % 6.1 Eosinophils % 0.0 Basophils % 0.2 Nucleated Red Blood Cells % 0.0 Neutrophils # 9.4 H Lymphocytes # 1.8 Monocytes # 0.7 Eosinophils # 0.0 Basophils # 0.0 Nucleated Red Blood Cells # 0.0 Sodium Level 143 Potassium Level 4.0 Chloride Level 109 Carbon Dioxide Level 27 Anion Gap 11 Blood Urea Nitrogen 14 Creatinine 0.83 Glucose Level 98 Calcium Level 8.8 Magnesium Level 1.9 Medications Medications Current Medications Potassium Chloride/Dextrose/ Sod Cl 1,000 ml @ 125 mls/hr Q8H IV Last administered on 05/31/17 10:08; Admin Dose 125 MLS/HR; Start 05/29/17 at 15:49 Piperacillin Sod/ Tazobactam Sod 100 ml @ 25 mls/hr TID@02,10,18 IVPB Last administered on 05/31/17 10:10; Admin Dose 25 MLS/HR; Start 05/29/17 at 18:00; Stop 05/31/17 at 17:59 Acetaminophen (Ofirmev 1000mg/ 100ml Iv) 100 ml @ 400 mls/hr Q6H PRN IVPB PAIN LEVEL 1-3,fever; Start 05/29/17 at 16:30 Hydromorphone HCl (Dilaudid) 1 mg Q4H PRN IV PAIN Last administered on 08:31; Admin Dose 1 MG; Start 05/29/17 at 16:30 Ondansetron HCl (Zofran Inj) 4 mg Q4H PRN IV NAUSEA AND/OR VOMITING; Start 05/29/17 at 16:30 Pantoprazole (Protonix Iv) 40 mg DAILY@06 IV Last administered on 05/31/17 05: 23; Admin Dose 40 MG; Start 05/31/17 at 06:00 TAMARA BRASWELL May 31, 2017 12:40
[2017-05-31 14:00] VITALS: BP 113/72; RESP 18
--- NOTE | 2017-05-31 17:43 | PN ---
DATE: 05/31/2017 SUBJECTIVE: No complaint. He states that yesterday he did not have that much of abdominal pain. T olivia, he has a little bit more around the incision line. No fever, no nausea, no vomiting and no alfonso wel movement, but has been passing gas. The patient stated that he is very hungry and wants to eat. Has been out of bed, walking around, has passed gas. OBJECTIVE: VITAL SIGNS: Temperature 98, heart rate 70 regular, respirations 18, blood pressure 109/66, saturat ion 96% on room air. HEENT: WBC 12,000 with 78% segmented with a slight shift to the left. Hemoglobin is stable at 13.3 , hematocrit 38.5. Chemistry: Sodium, potassium, BUN, creatinine normal. HEART: Regular. LUNGS: Clear. ABDOMEN: Protruded with fat. Bowel sounds are present, almost normal. No rebound tenderness. No peritoneal irritation sign. Legs, negative. ASSESSMENT AND PLAN: A 52-year-old gentleman status post interval appendectomy was done 2 days ago, today is postop day #2, tolerating clear liquid diet. WBC has increased today to 12,000 and I am not sure what is the cause of that. There was no shift to the left. PLAN: We will observe the patient overnight, but meanwhile the patient wants to eat so I am going t o advance the diet to regular diet. Dictated By: CHINYERE AMARO/MYAH Conf#: [id number] DID#: [id number]
[2017-05-31 21:45] VITALS: BP 117/81; RESP 20
[2017-06-01 00:20] VITALS: BP 111/68; RESP 20
[2017-06-01 02:20] VITALS: BP 105/64; RESP 18
[2017-06-01 05:21] LABS: BASOPHILS % 0.3 % (0.0-2.0); EOSINOPHILS # 0.1 10^3/ul (0.0-0.5); EOSINOPHILS % 0.8 % (0.0-7.0); HEMATOCRIT 39.9 % (42.0-52.0); HEMOGLOBIN 13.6 g/dl (14.0-18.0); LYMPHOCYTES # 2.2 10^3/ul (0.8-2.9); LYMPHOCYTES % 28.5 % (15.0-51.0); MEAN CORPUSCULAR HGB CONC 34.1 g/dl (32.0-37.0); MEAN CORPUSCULAR VOLUME 90.9 fl (82.0-101.0); MEAN PLATELET VOLUME 9.5 fl (7.4-10.4); MONOCYTE # 0.7 10^3/ul (0.3-0.9); MONOCYTES % 9.8 % (0.0-11.0); NEUTROPHIL # 4.6 10^3/ul (1.6-7.5); NEUTROPHILS % 60.3 % (39.0-77.0); PLATELET COUNT 170 10^3/UL (140-415); RED BLOOD COUNT 4.39 10^6/ul (4.70-6.10); WHITE BLOOD COUNT 7.6 10^3/ul (4.8-10.8)
[2017-06-01 05:41] LABS: CALCIUM 8.7 mg/dl (8.4-10.2); CREATININE 0.82 mg/dl (0.61-1.24); POTASSIUM 4.3 mmol/L (3.5-5.1)
[2017-06-01] MEDS ORDERED: PANTOPRAZOLE (EC) 40 MG TAB PO SCH (06:00)
[2017-06-01 07:35] VITALS: BP 122/65; RESP 19
[2017-06-01] MEDS: D5W-0.45 NACL + KCL 20 MEQ 1,000 ML IV SCH (07:42)
[2017-06-01] MEDS ORDERED: BISACODYL 10 MG SUPP PR PRN (11:30)
[2017-06-01] MEDS ORDERED: traMADol 50 MG TAB PO PRN (11:30)
[2017-06-01] MEDS ORDERED: DOCUSATE SODIUM 100 MG CAP PO SCH (11:30)
--- NOTE | 2017-06-01 11:33 | PN ---
Date/Time of Note Date/Time of Note DATE: 06/01/17 TIME: 11:27 Assessment/Plan VTE Prophylaxis VTE Prophylaxis Intervention: ambulation, SCD's Lines/Catheters IV Catheter Type (from Nrsg): Peripheral IV Urinary Cath still in place: No Assessment/Plan Assessment/Plan 48-year-old male with: 1. Previous appendicitis, status post appendectomy, POD#[address] Trujillo Patient passing gas, tolerating po, WBC down and per Dr Gaby ellsworth to go home, no need for abx Follow-up with Dr Trujillo in 1 week Prophylaxis: SCDs for DVT prophylaxis, Protonix for GI prophylaxis Disposition: D/c home with f/u with Dr Trujillo within 1 week and PCP within 1 week Subjective 24 Hr Interval Summary Free Text/Dictation Patient doing well today and per JUSTIN Malone to d/c home today with outpatient surgical follow up Exam/Review of Systems Vital Signs Vitals Vital Signs Date Time Temp Pulse Resp B/P Pulse Ox O2 Delivery O2 Flow Rate FiO2 06/01/17 07:35 98.2 79 19 122/65 98 05/29/17 22:00 Room Air 05/29/17 21:00 2.0 Intake and Output 05/31/17 05/31/17 06/01/17 15:00 23:00 07:00 Intake Total 1100 ml 1150 ml 1400 ml Output Total 980 ml 600 ml Balance 1100 ml 170 ml 800 ml Exam Constitutional: alert, oriented, well developed Respiratory: clear to auscultation, normal air movement Cardiovascular: nl pulses, regular rate and rhythm Gastrointestinal: soft, tender (mild TTP RLQ ) Musculoskeletal: nl extremities to inspection, nl gait and stance Neurological: RUNNING INSTRUCTOR II-XII intact, nl mental status, nl speech, nl strength Results Result Diagram: 06/01/17 0439 06/01/17 0439 Results 24 hrs Laboratory Tests Test 06/01/17 04:39 White Blood Count 7.6 # Red Blood Count 4.39 L Hemoglobin 13.6 L Hematocrit 39.9 L Mean Corpuscular Volume 90.9 Mean Corpuscular Hemoglobin 31.0 Mean Corpuscular Hemoglobin Concent 34.1 Red Cell Distribution Width 13.0 Platelet Count 170 Mean Platelet Volume 9.5 Neutrophils % 60.3 Lymphocytes % 28.5 Monocytes % 9.8 Eosinophils % 0.8 Basophils % 0.3 Nucleated Red Blood Cells % 0.0 Neutrophils # 4.6 Lymphocytes # 2.2 Monocytes # 0.7 Eosinophils # 0.1 Basophils # 0.0 Nucleated Red Blood Cells # 0.0 Sodium Level 142 Potassium Level 4.3 Chloride Level 109 Carbon Dioxide Level 29 Anion Gap 8 Blood Urea Nitrogen 12 Creatinine 0.82 Glucose Level 99 Calcium Level 8.7 Magnesium Level 2.0 Medications Medications Current Medications Potassium Chloride/Dextrose/ Sod Cl 1,000 ml @ 125 mls/hr Q8H IV Last administered on 06/01/17 07:42; Admin Dose 125 MLS/HR; Start 05/29/17 at 15:49 Acetaminophen (Ofirmev 1000mg/ 100ml Iv) 100 ml @ 400 mls/hr Q6H PRN IVPB PAIN LEVEL 1-3,fever; Start 05/29/17 at 16:30 Hydromorphone HCl (Dilaudid) 1 mg Q4H PRN IV PAIN Last administered on 08:31; Admin Dose 1 MG; Start 05/29/17 at 16:30 Ondansetron HCl (Zofran Inj) 4 mg Q4H PRN IV NAUSEA AND/OR VOMITING; Start 05/29/17 at 16:30 Influenza Virus Vaccine (Fluzone) 0.5 ml ONCE ONCE IM* ; Start 06/01/17 at 13:00 ; Stop 06/01/17 at 13:01 Pantoprazole (Protonix Tab) 40 mg DAILY@06 PO Last administered on 06/01/17 05 :55; Admin Dose 40 MG; Start 06/01/17 at 06:00 Docusate Sodium (Colace) 200 mg DAILY PO ; Start 06/01/17 at 11:30; Status UNV Bisacodyl (Dulcolax Supp) 10 mg DAILY PRN [place] CONSTIPATION; Start 06/01/17 at 11 :30; Status UNV TAMARA BRASWELL Jun 01, 2017 11:33
--- NOTE | 2017-06-01 11:34 | PDOCDIS ---
Discharge Instructions CONDITION Patient Condition: Good HOME CARE INSTRUCTIONS: Diet Instructions: Regular ACTIVITY: Activity Restrictions: Slowly Increase Activity Avoid heavy lifting Avoid Heavy Housework FOLLOW UP/APPOINTMENTS Follow-up Plan Follow up with Dr Trujillo in 1 week Follow up with PCP within 1 week TAMARA BRASWELL Jun 01, 2017 11:34
[2017-06-01] MEDS ORDERED: TRAM50TA2 PO (11:36)
[2017-06-01] MEDS ORDERED: DOCU-216 PO (11:36)
[2017-06-01] MEDS ORDERED: INFLUENZA VIRUS VACCINE 0.5 ML SYG IM* ONE (13:00)
--- NOTE | 2017-06-01 15:06 | PN ---
DATE: 06/01/2017 PROGRESS NOTE FOLLOWUP Postop day #3 interval appendectomy. SUBJECTIVE: No complaint. No abdominal pain, no nausea, no vomiting. Tolerated a regular diet and passing gas, no bowel movement. OBJECTIVE: VITAL SIGNS: Stable. Temperature 98.2, heart rate 79 and regular. Saturation 98%. LABORATORY DATA: WBC dropped to 7600 with 60% segmented neutrophils. Hemoglobin and hematocrit are stable. Electrolyte is stable. HEART: Regular. LUNGS: Clear. ABDOMEN: Soft and wound clean. EXTREMITIES: No calf tenderness. Legs, no edema. ASSESSMENT: A 52-year-old gentleman status post interval appendectomy. Patient is doing fine today . He is tolerating a regular diet, but no bowel movement, passing gas. No nausea, no vomiting. Ab domen is soft. The patient can be discharged home with pain prescription to be followed by Dr. Hurley is in his office. The patient to call Dr. Trujillo' office and make an appointment. Dictated By: CHINYERE AMARO/MYAH Conf#: [id number] DID#: [id number]
== END 2017-06-01 15:45 | disposition home or self-care (01) | DRG 340 ==
LOC: SDS 10:00 → MS1 15:50
PROVIDERS: ADMIT Surgery Surgical Oncology; ATTEND Surgery Surgical Oncology
PROC: 0DTJ0ZZ Resection of Appendix, Open Approach (ICD-10-PCS; principal; 2017-05-29 14:30)
DX: K35.2 Acute appendicitis with generalized peritonitis (principal); Z87.891 Personal history of nicotine dependence
CPT/HCPCS: 80048; 80053; 83735; 85025; 85610; 85730; 88304; 90686; C9113; J0131; J0295; J1100; J1170; J1885; J2270; J2543; J3010; J3480